=== PATIENT | female | born 1940 | race Caucasian/White ===

== ENCOUNTER 2016-08-21 07:37 | Inpatient (IN) | payer MEDICARE, OTHER ==
[~2016-08-21 07:37] MED LIST: ACTONEL150 MG; ADVAIR 2501 DISK W/D; ADVAIR 2501 DISK W/D IH; ALENDRONATE SOD70 M2 PO; AVANDAMET; BL MAXEPA CAPSU1 CAP PO; BREO ELLIPTA 11 EAC1 IH; BRIO INHALER; CALCIUM 500 +1 EAC6 PO; CALCIUM500 MG; COMBIVENT INH14.7 GM IH; DITROPAN PO; DULCOLAX10 MG RC; FOSAMAX70 MG PO; HUMALOG100 UNITS/; HYDROCODON-ACE1 EA16 PO; IPRAT-ALBUT 0.5-3 ML IH; LEVAQUIN250 M3 PO; LOVENOX40 MG/0.1 SC; METFORMIN; METFORMIN HCL500 M2 PO; METFORMIN HCL500 M4 PO; METFORMIN PO; MOTRIN800 MG; MYRBETRIQ50 M1 PO; NORCO 5-325 TA1 EACH PO; NORCO 5/325 TAB1 TAB PO; OXYBUTYNIN CHLO10 M1 PO; PLAVIX75 M1 PO; STOOL SOFTENER100 M2 PO; TAMOXIFEN CITRA10 M1 PO; TAMOXIFEN CITRA20 M1 PO; TYLENOL325 M2 PO; VITAMIN D31000 UNI4 PO; [UNRECOGNIZED DRUG - OTHER]; [UNRECOGNIZED DRUG - OTHER] PO
[2016-08-21] MEDS ORDERED: ALENDRONAT70 MG/75 M PO (08:30)
[2016-08-21] MEDS ORDERED: CALCIUM 600 +1 EA12 GT (08:31)
[2016-08-21] MEDS ORDERED: COUMADIN6 M1 PO (08:31)
[2016-08-21 08:32] LABS: URINE BILIRUBIN NEGATIVE (NEG); URINE BLOOD MODERATE (NEG); URINE GLUCOSE (UA) NEGATIVE (NEG); URINE KETONE NEGATIVE (NEG); URINE LEUKOCYTE ESTERASE POSITIVE (NEG); URINE NITRITE NEGATIVE (NEG); URINE PROTEIN NEGATIVE (NEG); URINE SPECIFIC GRAVITY 1.015 (1.003-1.030)
[2016-08-21 08:33] LABS: URINE APPEARANCE CLOUDY; URINE COLOR YELLOW
[2016-08-21] MEDS ORDERED: CYCLOBENZAPRINE5 M1 GT (08:33)
[2016-08-21] MEDS ORDERED: LAMICTAL25 M2 GT (08:34)
[2016-08-21] MEDS ORDERED: LACTULOSE10 GM/155 GT (08:34)
[2016-08-21] MEDS ORDERED: MIRALAX17 G2 GT (08:35)
[2016-08-21] MEDS ORDERED: LOVENOX40 MG/0.1 SC (08:35)
[2016-08-21] MEDS ORDERED: PLAVIX75 M1 PO (08:35)
[2016-08-21] MEDS ORDERED: TAMOXIFEN CITRA20 M1 PEG (08:36)
[2016-08-21] MEDS ORDERED: POTASSIUM20 MEQ/13 PO (08:36)
[2016-08-21] MEDS ORDERED: VITAMIN D32000 UNI3 GT (08:37)
[2016-08-21] MEDS ORDERED: ZOLOFT50 M1 GT (08:38)
[2016-08-21] MEDS ORDERED: CRANBERRY425 MG PO (08:38)
[2016-08-21] MEDS ORDERED: ZANTAC150 M1 GT (08:38)
[2016-08-21] MEDS ORDERED: PULMICORT0.5 MG/22 INH (08:39)
[2016-08-21 08:41] LABS: INR 1.2 INR (0.9-1.1); PROTHROMBIN TIME 14.3 SECONDS (9.0-13.6)
[2016-08-21] MEDS ORDERED: NOVOLOG100 UNITS/ SC (08:41)
[2016-08-21] MEDS ORDERED: ULTRAM50 M1 GT (08:41)
[2016-08-21] MEDS ORDERED: DULCOLAX10 MG PR (08:42)
[2016-08-21] MEDS ORDERED: IPRAT-ALBUT 0.5-3 ML INH (08:42)
[2016-08-21 08:43] LABS: BASO % 0.3 % (0-2); EOS % 2.1 % (0-7); EOSINOPHIL ABSOLUTE COUNT 0.2 tho/cmm (0.0-0.7); HCT-HEMATOCRIT 38.1 % (34.0-49.0); HGB-HEMOGLOBIN 12.4 gm/dl (12.0-15.5); IMMATURE GRANULOCYTES ABSOLUTE 0.04 tho/cmm (0-0.03); IMMATURE GRANULOCYTES PERCENT 0.4 % (0-0.3); LYMPH ABSOLUTE COUNT 1.4 tho/cmm (0.8-4.5); MCH (MEAN CORPUSCULAR HGB) 29.4 pg (28.0-32.0); MCHC MEAN CORPUSCULAR HGB CONC 32.5 % (32.0-36.0); MCV (MEAN CELL VOLUME) 90.3 fl (82.0-96.0); MEAN PLATELET VOLUME 10.9 cmc (9.4-12.4); MONO % 6.2 % (0-12); MONOCYTE ABSOLUTE COUNT 0.6 tho/cmm (0.0-1.2); PLATELET COUNT 286 tho/cmm (150-450); RED BLOOD COUNT 4.22 mil/cmm (4.00-5.20); RED CELL DISTRIBUTION WIDTH 13.8 % (12.4-16.4); WHITE BLOOD COUNT 9.2 tho/cmm (4.0-10.0)
[2016-08-21] MEDS ORDERED: ENEMA133 M4 PR (08:43)
[2016-08-21] MEDS ORDERED: ENEMEEZ283 MG/5 M PR (08:44)
[2016-08-21] MEDS ORDERED: GLUCAGON HCL1 MG IM (08:45)
[2016-08-21] MEDS ORDERED: GLUCOSE4 GM GT (08:45)
[2016-08-21] MEDS ORDERED: MILK OF MAGNESIA GT (08:46)
[2016-08-21] MEDS ORDERED: PHENASEPTIC177 ML MM (08:47)
[2016-08-21] MEDS ORDERED: TROLAMINE SALIC85 GM TP (08:48)
[2016-08-21 08:49] LABS: URINE AMORPHOUS 2+; URINE BACTERIA 2+
[2016-08-21] MEDS ORDERED: ZOFRAN4 M2 GT (08:49)
[2016-08-21 08:51] LABS: ALB/GLOB RATIO 0.6 (0.8-2.0); ALBUMIN 2.9 g/dl (3.5-5.0); ALKALINE PHOSPHATASE 78 U/L (33-138); ALT/SGPT 29 U/L (12-78); ANION GAP 13 mmol/L (0-20); AST/SGOT 22 U/L (10-40); BILIRUBIN,TOTAL 0.2 mg/dl (0-1.5); BLOOD UREA NITROGEN 9 mg/dl (6-24); CALCIUM 9.3 mg/dl (8.5-10.5); CARBON DIOXIDE-VENOUS 28 mmol/L (22-32); CHLORIDE 110 mmol/l (96-110); CREATININE 0.59 mg/dl (0.50-1.10); GLUCOSE 123 mg/dL (70-110); POTASSIUM 3.6 mmol/L (3.7-5.1); SODIUM 147 mmol/L (135-145); eGFR VALUE FOR BLACK >90 mL/Min
[2016-08-21] MEDS ORDERED: NYSTOP60 GM EXT ×2 (11:10→11:11)
[2016-08-22 03:45] LABS: BASO % 0.4 % (0-2); EOS % 4.9 % (0-7); EOSINOPHIL ABSOLUTE COUNT 0.4 tho/cmm (0.0-0.7); HCT-HEMATOCRIT 31.7 % (34.0-49.0); HGB-HEMOGLOBIN 10.3 gm/dl (12.0-15.5); IMMATURE GRANULOCYTES ABSOLUTE 0.03 tho/cmm (0-0.03); IMMATURE GRANULOCYTES PERCENT 0.4 % (0-0.3); LYMPH ABSOLUTE COUNT 1.9 tho/cmm (0.8-4.5); MCH (MEAN CORPUSCULAR HGB) 29.2 pg (28.0-32.0); MCHC MEAN CORPUSCULAR HGB CONC 32.5 % (32.0-36.0); MCV (MEAN CELL VOLUME) 89.8 fl (82.0-96.0); MEAN PLATELET VOLUME 10.3 cmc (9.4-12.4); MONO % 6.9 % (0-12); MONOCYTE ABSOLUTE COUNT 0.5 tho/cmm (0.0-1.2); NEUTROPHIL ABSOLUTE COUNT 4.9 tho/cmm (1.6-8.0); NEUTROPHIL-AUTOMATED 4.9 tho/cmm (1.6-8.0); NEUTROPHILS % 63.4 % (40-80); PLATELET COUNT 225 tho/cmm (150-450); RED BLOOD COUNT 3.53 mil/cmm (4.00-5.20); RED CELL DISTRIBUTION WIDTH 13.9 % (12.4-16.4); WHITE BLOOD COUNT 7.8 tho/cmm (4.0-10.0)
[2016-08-22 03:51] LABS: INR 1.6 INR (0.9-1.1)
[2016-08-22 04:00] LABS: ALB/GLOB RATIO 0.6 (0.8-2.0); ALBUMIN 2.3 g/dl (3.5-5.0); ALKALINE PHOSPHATASE 55 U/L (33-138); ALT/SGPT 23 U/L (12-78); ANION GAP 11 mmol/L (0-20); AST/SGOT 22 U/L (10-40); BILIRUBIN,TOTAL 0.3 mg/dl (0-1.5); BLOOD UREA NITROGEN 7 mg/dl (6-24); CALCIUM 8.5 mg/dl (8.5-10.5); CARBON DIOXIDE-VENOUS 26 mmol/L (22-32); CHLORIDE 113 mmol/l (96-110); CREATININE 0.54 mg/dl (0.50-1.10); GLUCOSE 106 mg/dL (70-110); MAGNESIUM 2.1 mg/dl (1.8-2.6); POTASSIUM 3.6 mmol/L (3.7-5.1); SODIUM 146 mmol/L (135-145); eGFR VALUE FOR BLACK >90 mL/Min
[2016-08-22 04:11] LABS: PARTIAL THROMBOPLASTIN TIME 29 SECONDS (22-36)
[2016-08-22 04:13] LABS: PROTHROMBIN TIME 18.7 SECONDS (9.0-13.6)
[2016-08-23 06:28] LABS: BASO % 0.3 % (0-2); EOS % 4.7 % (0-7); EOSINOPHIL ABSOLUTE COUNT 0.3 tho/cmm (0.0-0.7); HCT-HEMATOCRIT 31.5 % (34.0-49.0); HGB-HEMOGLOBIN 10.2 gm/dl (12.0-15.5); IMMATURE GRANULOCYTES ABSOLUTE 0.02 tho/cmm (0-0.03); IMMATURE GRANULOCYTES PERCENT 0.3 % (0-0.3); LYMPH % 16.3 % (20-45); LYMPH ABSOLUTE COUNT 1.1 tho/cmm (0.8-4.5); MCH (MEAN CORPUSCULAR HGB) 28.8 pg (28.0-32.0); MCHC MEAN CORPUSCULAR HGB CONC 32.4 % (32.0-36.0); MEAN PLATELET VOLUME 10.6 cmc (9.4-12.4); MONO % 5.7 % (0-12); MONOCYTE ABSOLUTE COUNT 0.4 tho/cmm (0.0-1.2); NEUTROPHIL ABSOLUTE COUNT 4.9 tho/cmm (1.6-8.0); NEUTROPHIL-AUTOMATED 4.9 tho/cmm (1.6-8.0); NEUTROPHILS % 72.7 % (40-80); PLATELET COUNT 226 tho/cmm (150-450); RED BLOOD COUNT 3.54 mil/cmm (4.00-5.20); RED CELL DISTRIBUTION WIDTH 13.7 % (12.4-16.4); WHITE BLOOD COUNT 6.8 tho/cmm (4.0-10.0)
[2016-08-23 06:33] LABS: INR 1.7 INR (0.9-1.1); PROTHROMBIN TIME 20.2 SECONDS (9.0-13.6)
[2016-08-23 06:41] LABS: ANION GAP 11 mmol/L (0-20); BLOOD UREA NITROGEN 8 mg/dl (6-24); CALCIUM 8.5 mg/dl (8.5-10.5); CARBON DIOXIDE-VENOUS 26 mmol/L (22-32); CHLORIDE 106 mmol/l (96-110); CREATININE 0.53 mg/dl (0.50-1.10); POTASSIUM 3.4 mmol/L (3.7-5.1); SODIUM 140 mmol/L (135-145); eGFR VALUE FOR BLACK >90 mL/Min
[2016-08-23 06:47] LABS: GLUCOSE 180 mg/dL (70-110)
[2016-08-23] MEDS ORDERED: AUGMENTIN 875-1 EAC2 GT (14:06)
[2016-11-15] MEDS ORDERED: NEOSPORIN MOIS170 GM TP (14:38)
[2016-11-15] MEDS ORDERED: ENEMA READY TO133 M1 PR (14:57)
[2016-11-15] MEDS ORDERED: TYLENOL EXTRA500 M1 PO (15:20)
== END 2016-08-23 16:30 | DRG 744 ==
LOC: EDMED → EDBD 07:37 → EDMED 16:10 → EMR2 16:30 → PCUB 16:30
PROVIDERS: Emergency Medicine; Internal Medicine; ADMIT Hospitalist
PROC: 0UDB7ZX Extraction of Endometrium, Via Natural or Artificial Opening, Diagnostic (ICD-10-PCS; principal; 2016-08-21)
DX: N95.0 Postmenopausal bleeding (principal); N39.0 Urinary tract infection, site not specified; I69.354 Hemiplegia and hemiparesis following cerebral infarction affecting left non-dominant side; I50.32 Chronic diastolic (congestive) heart failure; I13.0 Hypertensive heart and chronic kidney disease with heart failure and stage 1 through stage 4 chronic kidney disease, or unspecified chronic kidney disease; E11.22 Type 2 diabetes mellitus with diabetic chronic kidney disease; D62 Acute posthemorrhagic anemia; R93.8 Abnormal findings on diagnostic imaging of other specified body structures; N85.2 Hypertrophy of uterus; B95.2 Enterococcus as the cause of diseases classified elsewhere; J44.9 Chronic obstructive pulmonary disease, unspecified; K21.9 Gastro-esophageal reflux disease without esophagitis; M19.90 Unspecified osteoarthritis, unspecified site; E55.9 Vitamin D deficiency, unspecified; N18.9 Chronic kidney disease, unspecified; F32.9 Major depressive disorder, single episode, unspecified; Z74.01 Bed confinement status; Z93.1 Gastrostomy status; Z79.01 Long term (current) use of anticoagulants; Z79.02 Long term (current) use of antithrombotics/antiplatelets
CPT/HCPCS: C1751; J0696; J1815; J7030; P9612